=== PATIENT | male | born 1975 ===

== ENCOUNTER 2021-07-02 06:37 | Day surgery (SDC) | payer OTHER | END 2021-07-02 13:05 | disposition home or self-care (01) | LOC: AMB-ENDOS 06:37 | PROVIDERS: ATTEND Colon & Rectal Surgery | DX: D12.3 Benign neoplasm of transverse colon (principal); Z86.010 Personal history of colon polyps; I10 Essential (primary) hypertension; E11.9 Type 2 diabetes mellitus without complications; Z79.84 Long term (current) use of oral hypoglycemic drugs ==